=== PATIENT | female | born 1945 | race Caucasian/White ===

== ENCOUNTER 2020-04-08 10:20 | Day surgery (SDC) | payer OTHER | END 2020-04-08 15:00 | disposition home or self-care (01) | LOC: AMB-ENDOS 10:20 | PROVIDERS: ATTEND Surgery | DX: K63.5 Polyp of colon (principal); K52.89 Other specified noninfective gastroenteritis and colitis ==

== ENCOUNTER 2022-01-12 08:15 | Inpatient (IN) | payer OTHER ==
[~2022-01-12] VITALS: Ht 157.5 cm; Wt 64.4 kg
[2022-01-12] MEDS ORDERED: TOPROL XL100 M1 PO (13:03)
[2022-01-12] MEDS ORDERED: HYDROCHLOROTH12.5 MG PO (13:03)
[2022-01-18] MEDS ORDERED: SUCRALFATE1 GM (13:08)
[2022-01-18] MEDS ORDERED: NEO-POLY-DEXAM3.5 G1 (13:08)
[2022-01-21] MEDS ORDERED: INTESTINEX680 M1 PO (12:56)
[2022-01-21] MEDS ORDERED: PRILOSEC OTC20 MG PO (12:57)
== END 2022-01-21 15:06 | disposition home or self-care (01) | DRG 331 ==
LOC: SURH 01-18 08:15 → O/R 01-18 11:12 → SURH 01-18 15:07
PROVIDERS: ADMIT Surgery; ATTEND Surgery
PROC: 0DBP4ZZ Excision of Rectum, Percutaneous Endoscopic Approach (ICD-10-PCS; 2022-01-18)
PROC: 0DBU4ZZ Excision of Omentum, Percutaneous Endoscopic Approach (ICD-10-PCS; 2022-01-18)
PROC: 0DJD8ZZ Inspection of Lower Intestinal Tract, Via Natural or Artificial Opening Endoscopic (ICD-10-PCS; 2022-01-18)
PROC: 0DTN4ZZ Resection of Sigmoid Colon, Percutaneous Endoscopic Approach (ICD-10-PCS; principal; 2022-01-18 09:00)
DX: K57.32 Diverticulitis of large intestine without perforation or abscess without bleeding (principal); K43.2 Incisional hernia without obstruction or gangrene; K21.00 Gastro-esophageal reflux disease with esophagitis, without bleeding; I10 Essential (primary) hypertension; N73.6 Female pelvic peritoneal adhesions (postinfective)